=== PATIENT | female | born 1970 | race Caucasian/White ===

== ENCOUNTER 2020-01-20 14:19 | Emergency (ER) | payer OTHER, MEDICAID, SELFPAY ==
[2020-01-20] VITALS (7 sets, daily range): BP systolic 112–134; BP diastolic 66–87; PULSE 63–79; RESP 12–24; TEMP 36.5; O2SAT 96–98
--- NOTE | 2020-01-20 14:30 | DI.RAD.S_ITS ---
PROCEDURE: XR CHEST 2V INDICATIONS: chest pain TECHNIQUE: 2 views of the chest were acquired. COMPARISON: None. FINDINGS: Surgical changes and devices: None. Lungs and pleura: Lungs are clear. No pleural effusions or pneumothorax. Mediastinum: Mediastinal contours are normal. Heart size is normal. Bones and chest wall: No suspicious bony abnormalities. Soft tissues appear unremarkable. IMPRESSION: No acute pulmonary process. Dictated by: Meseret Curtis M.D. on 01/20/2020 at 14:41 Approved by: Meseret Curtis M.D. on 01/20/2020 at 14:41
[2020-01-20 15:02] LABS: Add Manual Diff / Slide Review NO; Basophils Absolute Auto 100 /uL (0-100); Basophils Percent Auto 1.3 % (0-2); Eosinophils Absolute Auto 0 /uL (0-450); Eosinophils Percent Auto 0.8 % (2-4); Hematocrit 41.3 % (36-46); Hemoglobin 14.4 g/dL (12.0-16.0); Lymphocytes Absolute Auto 1900 /uL (1100-4500); Lymphocytes Percent Auto 31.4 % (25-40); Mean Corpuscular HGB Conc 34.8 % (30-36); Mean Corpuscular Hemoglobin 29.9 PG (26-34); Mean Corpuscular Volume 86.1 fL (80-100); Monocytes Absolute Auto 300 /uL (0-900); Monocytes Percent Auto 5.5 % (3-14); Neutrophils Absolute Auto 3700 /uL (1500-7000); Platelet Count 285 X10^3/uL (150-400); Red Cell Distribution Width 12.8 % (11.6-14.8); White Blood Cell Count 6.1 X10^3/uL (4.5-11.0)
[2020-01-20 15:07] LABS: Prothrombin Time 11.2 SECONDS (10.1-12.7)
[2020-01-20 15:10] LABS: PTT Partial Thromboplastin Tim 40 SECONDS (26.4-36.2)
[2020-01-20 15:11] LABS: Alanine Aminotransferase 12 IU/L (<35); Albumin 4.7 g/dL (3.5-5.0); Albumin Globulin Ratio 1.4 (1.0-2.8); Alkaline Phosphatase 67 U/L (38-126); Aspartate Aminotransferase 25 IU/L (14-36); BUN Creatinine Ratio 30.4 (6-22); Bilirubin Total 0.7 mg/dL (0.2-1.3); Blood Urea Nitrogen 14 mg/dL (7-17); Calcium 9.4 mg/dL (8.4-10.2); Carbon Dioxide 28 mmol/L (22-32); Chloride 104 mmol/L (98-107); Creatine Kinase 40 U/L (30-135); Estimated Glomerular Filt Rate > 60.0 mL/min (>60); Globulin 3.3 g/dL (1.7-4.1); Glucose 95 mg/dL (70-100); HEMOLYSIS 30 (0-50); Lipase 81 U/L (23-300); Potassium 3.8 mmol/L (3.4-5.1); Sodium 137 mmol/L (137-145)
[2020-01-20 15:23] LABS: Troponin I < 0.012 ng/mL (0.01-0.034)
--- NOTE | 2020-01-20 16:00 | ED.CHESTPAIN ---
HPI - Chest Pain <FRANCISCA Lynne - Last Filed: 01/20/20 20:06> General Chief Complaint: Chest Pain Stated Complaint: My Heart SOB, Dizzy, Lightheadedness Time Seen by Provider: 01/20/20 15:53 Source: patient Mode of arrival: Ambulatory History of Present Illness HPI narrative: 49yo female with a history of a previous OK which she states she received a heart catheterization but not a stent, presents emergency department for fatigue, dizziness, ?slow heart rate, and an episode of diarrhea. Patient states this happened last time she had her OK. She denies any chest pressure, shortness of breath, cough, nausea, vomiting, limb weakness, or any other concerns. She states she had her OK in [facility], current PCP is in [place]. Review of Systems <FRANCISCA Lynne - Last Filed: 01/20/20 20:06> Review of Systems Narrative: REVIEW OF SYSTEMS: GENERAL: Denies fever or chills. Reports fatigue, see HPI. HENT: No head trauma. CARDIOVASCULAR: No chest pain or syncope. Reports palpitations, see HPI. RESPIRATORY: No shortness of breath or cough. GASTROINTESTINAL: No nausea, vomiting, diarrhea, or constipation. GENITOURINARY: No flank pain or dysuria. MUSCULOSKELETAL: No pain. INTEGUMENTARY: No rash. NEURO: No numbness or tingling. PSYCH: No behavior or mood changes. Patient History <FRANCISCA Lynne - Last Filed: 01/20/20 20:06> Medical History OK (myocardial infarction) Substance Use Type: does not use Exam <FRANCISCA Lynne - Last Filed: 01/20/20 20:06> Initial Vital Signs Initial Vital Signs: Vital Signs Temperature 97.7 F 01/20/20 14:30 Pulse Rate 79 01/20/20 14:30 Respiratory Rate 18 01/20/20 14:30 Blood Pressure 134/87 01/20/20 14:30 Pulse Oximetry 97 01/20/20 14:30 PHYSICAL EXAMINATION: GENERAL: Well groomed, alert, and cooperative. Answers questions promptly and appropriately. Vital signs noted. HENT: Normocephalic, atraumatic. Ear canals patent. Oral mucosa is pink and moist. EYES: PERRLA, EOMIs, Conjunctiva pink, sclera white, no periorbital swelling. CHEST: Normal to inspection and without deformities. CARDIOVASCULAR: S1 and S2 sounds normal. Regular rate and rhythm, no murmurs, clicks, or bruits. No pedal edema. RESPIRATORY: Normal respiratory rate, trachea midline, airway patent. No stridor, nasal flaring or accessory muscle use. Lungs are clear in all [place] without wheeze, rhonchi, or crackles. GASTROINTESTINAL: Bowel sounds normoactive. Abdomen is soft and non-tender. No organomegaly. MUSCULOSKELETAL: Normal gait and coordination. Equal tone and mass bilaterally. EXTREMITIES: CMS intact. Moves all extremities. SKIN: Warm, dry, soft, appropriate color for ethnicity. No lesions, rashes, or wounds. NEURO: Alert and Oriented X 3. Good coordination. No ataxia, or sensory deficits, or cognitive issues. GCS of 15. PSYCH: Appropriate affect and mood. <Christine Maradiaga DO - Last Filed: 01/21/20 19:21> Initial Vital Signs Initial Vital Signs: Vital Signs Temperature 97.7 F 01/20/20 14:30 Pulse Rate 79 01/20/20 14:30 Respiratory Rate 18 01/20/20 14:30 Blood Pressure 134/87 01/20/20 14:30 Pulse Oximetry 97 01/20/20 14:30 Course <FRANCISCA Lynne - Last Filed: 01/20/20 20:06> Course Course Narrative: Re-evaluated patient, feeling slightly better after fluids but continues to feel tired. Denies palpitations at this time. Discussed test results and the importance of follow-up, patient was agreeable. Orders Ordered: Discontinued Medications Sodium Chloride (Normal Saline 0.9%) 1,000 mls @ 1,000 mls/hr IV BOLUS ONE Stop: 01/20/20 17:26 Last Infusion: 01/20/20 17:58 Dose: 0 mls/hr Documented by: Admin: 01/20/20 17:09 Dose: 1,000 mls/hr Documented by: KADIE Reevaluation(s) Reevaluation #1: Patient staffed with Dr. Maradiaga discussed test, test results, plan of care. Vital Signs Vital signs: Vital Signs - 8 hr 01/20/20 14:30 01/20/20 14:58 01/20/20 15:00 Temperature 97.7 F Pulse Rate 79 74 73 Respiratory Rate 18 12 16 Blood Pressure 134/87 122/73 Pulse Oximetry 97 97 97 01/20/20 15:30 01/20/20 16:00 01/20/20 16:30 Temperature Pulse Rate 66 67 63 Respiratory Rate 15 24 23 Blood Pressure 124/69 112/71 116/70 Pulse Oximetry 98 98 96 01/20/20 17:00 Temperature Pulse Rate 73 Respiratory Rate 14 Blood Pressure 112/66 Pulse Oximetry 97 <Christine Maradaiga DO - Last Filed: 01/21/20 19:21> Orders Ordered: Discontinued Medications Sodium Chloride (Normal Saline 0.9%) 1,000 mls @ 1,000 mls/hr IV BOLUS ONE Stop: 01/20/20 17:26 Last Infusion: 01/20/20 17:58 Dose: 0 mls/hr Documented by: Admin: 01/20/20 17:09 Dose: 1,000 mls/hr Documented by: KADIE Vital Signs Vital signs: Vital Signs - 8 hr 01/20/20 14:30 01/20/20 14:58 01/20/20 15:00 Temperature 97.7 F Pulse Rate 79 74 73 Respiratory Rate 18 12 16 Blood Pressure 134/87 122/73 Pulse Oximetry 97 97 97 01/20/20 15:30 01/20/20 16:00 01/20/20 16:30 Temperature Pulse Rate 66 67 63 Respiratory Rate 15 24 23 Blood Pressure 124/69 112/71 116/70 Pulse Oximetry 98 98 96 01/20/20 17:00 Temperature Pulse Rate 73 Respiratory Rate 14 Blood Pressure 112/66 Pulse Oximetry 97 MDM - Chest Pain <FRANCISCA Lynne - Last Filed: 01/20/20 20:06> Medical Records Data Attestation: I reviewed the patient's medical records. Lab Data Attestation: I reviewed the patient's lab results. Result diagrams: 01/20/20 14:45 01/20/20 14:45 Labs: Lab Results 01/20/20 01/20/20 01/20/20 Range/Units 14:45 14:45 14:45 WBC 6.1 (4.5-11.0) X10^3/uL RBC 4.80 (4.0-5.2) X10^6/uL Hgb 14.4 (12.0-16.0) g/dL Hct 41.3 (36-46) % MCV 86.1 (80-100) fL MCH 29.9 (26-34) PG MCHC 34.8 (30-36) % RDW 12.8 (11.6-14.8) % Plt Count 285 (150-400) X10^3/uL Neut % (Auto) 61.0 (50-75) % Lymph % (Auto) 31.4 (25-40) % [place] % (Auto) 5.5 (3-14) % Eos % (Auto) 0.8 L (2-4) % Baso % (Auto) 1.3 (0-2) % Neut # (Auto) 3700 (0620-8438) /uL Lymph # (Auto) 1900 (6597-8858) /uL [place] # (Auto) 300 (0-900) /uL Eos # (Auto) 0 (0-450) /uL Baso # (Auto) 100 (0-100) /uL PT 11.2 (10.1-12.7) SECONDS INR 1.0 (0.9-1.3) APTT 40 H (26.4-36.2) SECONDS Sodium 137 (137-145) mmol/L Potassium 3.8 (3.4-5.1) mmol/L Chloride 104 (98-107) mmol/L Carbon Dioxide 28 (22-32) mmol/L BUN 14 (7-17) mg/dL Creatinine 0.46 L (0.52-1.04) mg/dL Estimated GFR > 60.0 (>60) mL/min BUN/Creatinine Ratio 30.4 H (6-22) Glucose 95 (70-100) mg/dL Calcium 9.4 (8.4-10.2) mg/dL Total Bilirubin 0.7 (0.2-1.3) mg/dL AST 25 (14-36) IU/L ALT 12 (<35) IU/L Alkaline Phosphatase 67 (38-126) U/L Total Creatine Kinase 40 (30-135) U/L CK-MB (CK-2) TNP CK-MB (CK-2) Rel Index TNP Troponin I < 0.012 (0.01-0.034) ng/mL Total Protein 8.0 (6.3-8.2) g/dL Albumin 4.7 (3.5-5.0) g/dL Globulin 3.3 (1.7-4.1) g/dL Albumin/Globulin Ratio 1.4 (1.0-2.8) Lipase 81 (23-300) U/L TSH (0.47-4.68) uIU/mL COVID-19 PCR (Negative) 01/20/20 01/20/20 Range/Units 14:45 17:11 WBC (4.5-11.0) X10^3/uL RBC (4.0-5.2) X10^6/uL Hgb (12.0-16.0) g/dL Hct (36-46) % MCV (80-100) fL MCH (26-34) PG MCHC (30-36) % RDW (11.6-14.8) % Plt Count (150-400) X10^3/uL Neut % (Auto) (50-75) % Lymph % (Auto) (25-40) % [place] % (Auto) (3-14) % Eos % (Auto) (2-4) % Baso % (Auto) (0-2) % Neut # (Auto) (6374-9964) /uL Lymph # (Auto) (8073-3563) /uL [place] # (Auto) (0-900) /uL Eos # (Auto) (0-450) /uL Baso # (Auto) (0-100) /uL PT (10.1-12.7) SECONDS INR (0.9-1.3) APTT (26.4-36.2) SECONDS Sodium (137-145) mmol/L Potassium (3.4-5.1) mmol/L Chloride (98-107) mmol/L Carbon Dioxide (22-32) mmol/L BUN (7-17) mg/dL Creatinine (0.52-1.04) mg/dL Estimated GFR (>60) mL/min BUN/Creatinine Ratio (6-22) Glucose (70-100) mg/dL Calcium (8.4-10.2) mg/dL Total Bilirubin (0.2-1.3) mg/dL AST (14-36) IU/L ALT (<35) IU/L Alkaline Phosphatase (38-126) U/L Total Creatine Kinase (30-135) U/L CK-MB (CK-2) CK-MB (CK-2) Rel Index Troponin I (0.01-0.034) ng/mL Total Protein (6.3-8.2) g/dL Albumin (3.5-5.0) g/dL Globulin (1.7-4.1) g/dL Albumin/Globulin Ratio (1.0-2.8) Lipase (23-300) U/L TSH 0.673 (0.47-4.68) uIU/mL COVID-19 PCR Negative (Negative) Imaging Data Chest x-ray: Radiologist's Impression: [address] [id number] ReportSigned Patient: Jane KinseyMR#: [id number]: 1970Acct:[id number]/Sex: 49 / FDate of Service: 01/20/20Loc: EDAccession Number: [id number] Procedure: XR chest 2V Ordering Provider: Christine Maradiaga D.O. PROCEDURE: XR CHEST 2V INDICATIONS: chest pain TECHNIQUE: 2 views of the chest were acquired. COMPARISON: None. FINDINGS: Surgical changes and devices: None. Lungs and pleura: Lungs are clear. No pleural effusions or pneumothorax. Mediastinum: Mediastinal contours are normal. Heart size is normal. Bones and chest wall: No suspicious bony abnormalities. Soft tissues appear unremarkable. IMPRESSION: No acute pulmonary process. Dictated by: Meseret Curtis M.D. on 01/20/2020 at 14:41 Approved by: Meseret Curtis M.D. on 01/20/2020 at 14:41 ECG Data Interpretation: 1428: Normal sinus rhythm, rate 75, ME interval 124, QTC 442. No ST elevation or ST depression. No T-wave inversion. No ectopy. EKG also viewed by DR. Maradiaga per protocol. MDM Narrative Medical decision making narrative: 49-year-old female presenting to the ED for fatigue and palpitation, concern for an OK. Am unsure the exact cause of patient's symptoms however, I suspect most likely viral given recent bout of diarrhea and fatigue. Less likely COVID-19 given negative result. Less likely cardiac etiology given negative troponin, non-remarkable EKG or chest x-ray. Less likely acute abdominal etiology given lack of pain, laboratory work within normal limits, and benign examination. Less likely electrolyte abnormalities or thyroid disorder contributing to palpitations given TSH and electrolytes within normal limits. No abnormal arrhythmias were seen on the monitor in the ED stay or on EKG. Dizziness may most likely be related to recent viral illness or a small amount of dehydration given she was feeling slightly better post fluid administration. Less likely central Neurology given lack of other concerning symptoms, benign neuro exam. Return precautions given for new or worsening symptoms. Discussed importance of follow-up. Patient was agreeable to plan of care verbalized understanding. <Christine Maradiaga, DO - Last Filed: 01/21/20 19:21> Lab Data Labs: Lab Results 01/20/20 01/20/20 01/20/20 Range/Units 14:45 14:45 14:45 WBC 6.1 (4.5-11.0) X10^3/uL RBC 4.80 (4.0-5.2) X10^6/uL Hgb 14.4 (12.0-16.0) g/dL Hct 41.3 (36-46) % MCV 86.1 (80-100) fL MCH 29.9 (26-34) PG MCHC 34.8 (30-36) % RDW 12.8 (11.6-14.8) % Plt Count 285 (150-400) X10^3/uL Neut % (Auto) 61.0 (50-75) % Lymph % (Auto) 31.4 (25-40) % [place] % (Auto) 5.5 (3-14) % Eos % (Auto) 0.8 L (2-4) % Baso % (Auto) 1.3 (0-2) % Neut # (Auto) 3700 (2396-7040) /uL Lymph # (Auto) 1900 (2975-8147) /uL [place] # (Auto) 300 (0-900) /uL Eos # (Auto) 0 (0-450) /uL Baso # (Auto) 100 (0-100) /uL PT 11.2 (10.1-12.7) SECONDS INR 1.0 (0.9-1.3) APTT 40 H (26.4-36.2) SECONDS Sodium 137 (137-145) mmol/L Potassium 3.8 (3.4-5.1) mmol/L Chloride 104 (98-107) mmol/L Carbon Dioxide 28 (22-32) mmol/L BUN 14 (7-17) mg/dL Creatinine 0.46 L (0.52-1.04) mg/dL Estimated GFR > 60.0 (>60) mL/min BUN/Creatinine Ratio 30.4 H (6-22) Glucose 95 (70-100) mg/dL Calcium 9.4 (8.4-10.2) mg/dL Total Bilirubin 0.7 (0.2-1.3) mg/dL AST 25 (14-36) IU/L ALT 12 (<35) IU/L Alkaline Phosphatase 67 (38-126) U/L Total Creatine Kinase 40 (30-135) U/L CK-MB (CK-2) TNP CK-MB (CK-2) Rel Index TNP Troponin I < 0.012 (0.01-0.034) ng/mL Total Protein 8.0 (6.3-8.2) g/dL Albumin 4.7 (3.5-5.0) g/dL Globulin 3.3 (1.7-4.1) g/dL Albumin/Globulin Ratio 1.4 (1.0-2.8) Lipase 81 (23-300) U/L TSH (0.47-4.68) uIU/mL COVID-19 PCR (Negative) 01/20/20 01/20/20 Range/Units 14:45 17:11 WBC (4.5-11.0) X10^3/uL RBC (4.0-5.2) X10^6/uL Hgb (12.0-16.0) g/dL Hct (36-46) % MCV (80-100) fL MCH (26-34) PG MCHC (30-36) % RDW (11.6-14.8) % Plt Count (150-400) X10^3/uL Neut % (Auto) (50-75) % Lymph % (Auto) (25-40) % [place] % (Auto) (3-14) % Eos % (Auto) (2-4) % Baso % (Auto) (0-2) % Neut # (Auto) (6342-0662) /uL Lymph # (Auto) (7517-6809) /uL [place] # (Auto) (0-900) /uL Eos # (Auto) (0-450) /uL Baso # (Auto) (0-100) /uL PT (10.1-12.7) SECONDS INR (0.9-1.3) APTT (26.4-36.2) SECONDS Sodium (137-145) mmol/L Potassium (3.4-5.1) mmol/L Chloride (98-107) mmol/L Carbon Dioxide (22-32) mmol/L BUN (7-17) mg/dL Creatinine (0.52-1.04) mg/dL Estimated GFR (>60) mL/min BUN/Creatinine Ratio (6-22) Glucose (70-100) mg/dL Calcium (8.4-10.2) mg/dL Total Bilirubin (0.2-1.3) mg/dL AST (14-36) IU/L ALT (<35) IU/L Alkaline Phosphatase (38-126) U/L Total Creatine Kinase (30-135) U/L CK-MB (CK-2) CK-MB (CK-2) Rel Index Troponin I (0.01-0.034) ng/mL Total Protein (6.3-8.2) g/dL Albumin (3.5-5.0) g/dL Globulin (1.7-4.1) g/dL Albumin/Globulin Ratio (1.0-2.8) Lipase (23-300) U/L TSH 0.673 (0.47-4.68) uIU/mL COVID-19 PCR Negative (Negative) Discharge Plan Departure Patient Disposition: Home Clinical Impression: Fatigue Qualifiers: Fatigue type: unspecified Qualified Code(s): R53.83 - Other fatigue Activity Restrictions/Additional Instructions: Thank you for entrusting me with your care today. As discussed, your laboratory tests, EKG, chest x-ray, and COVID tests are negative for any concerning symptoms. I suggest make an appointment with your primary care provider in 1-2 weeks for further evaluation. Return emergency department for any new or worsening symptoms. <Christine Maradiaga DO - Last Filed: 01/21/20 19:21> Cosign ED Attending Cosignature Attestation: I was immediately available in the department for consultation. This documentation has been reviewed and I agree with assessment and plan. Supervised by Christine Maradiaga DO
[2020-01-20 16:43] LABS: Thyroid Stimulating Hormone 0.673 uIU/mL (0.47-4.68)
[2020-01-20] MEDS: SODIUM CHLORIDE 0.9% 1,000 ML 1000 ML IV (17:09)
[2020-01-20 17:37] LABS: COVID19 -Nasal RAPID Negative (Negative)
== END 2020-01-20 17:57 | disposition home or self-care (01) ==
PROVIDERS: Emergency Medicine; Emergency Provider Nurse Practitioner
DX: R53.83 Other fatigue (principal); R00.2 Palpitations; R42 Dizziness and giddiness; R06.02 Shortness of breath; R19.7 Diarrhea, unspecified
CPT/HCPCS: 36415; 71046; 80053; 82550; 83690; 84443; 84484; 85025; 85610; 85730; 87635; 93005; 96360; 99283; 99284